=== PATIENT | male | born 1955 | race Caucasian/White ===

== ENCOUNTER 2020-05-13 18:06 | Emergency (ER) | payer MEDICARE ==
[~2020-05-13] VITALS: Ht 165.1 cm; Wt 66.2 kg
--- NOTE | 2020-05-13 18:08 | NUR ---
PT BIBRA FROM HOME C/O WORSENING R SIDED CHEST PAIN FOR THE PAST WEEK. PT DENIES COUGH AND CONGESTION OR SHORTNESS OF BREATH. PT GOWNED AND PLACED ON MONITOR. VSS. AWAITNG MD ARZOLA.
--- NOTE | 2020-05-13 18:16 | NUR ---
DR SUE AT BEDSIDE FOR EVAL.
--- NOTE | 2020-05-13 18:25 | NUR ---
IV LINE STARTED BLOOD DRAWN AND SENT TO LAB.
[2020-05-13] MEDS ORDERED: KETOROLAC TROMETHAMINE INJ 30 MG/ML VIAL ONE (18:26)
[2020-05-13] MEDS ORDERED: KETOROLAC TROMETHAMINE INJ 30 MG/ML VIAL IV ONE (18:30)
--- NOTE | 2020-05-13 18:32 | NUR ---
RADIOLOGY AT BEDSIDE FOR CHEST XRAY.
[2020-05-13 18:35] LABS: BASOPHILS % (AUTO) 0.4 % (0.0-2.0); EOSINOPHILS % (AUTO) 1.6 % (0.0-6.0); HEMATOCRIT 44 % (39-51); HEMOGLOBIN 14.6 g/dL (13.5-17.5); LYMPHOCYTES # (AUTO) 1.9 /CMM (0.8-4.8); LYMPHOCYTES % (AUTO) 26.5 % (20.0-44.0); MEAN CORPUSCULAR HGB CONC 34 g/dl (31.0-36.0); MEAN CORPUSCULAR VOLUME 89 fL (80-96); MONOCYTES # (AUTO) 0.5 /CMM (0.1-1.30); MONOCYTES % (AUTO) 7.5 % (2.0-12.0); NEUTROPHILS # (AUTO) 4.7 /CMM (1.8-8.9); PLATELET COUNT (AUTO) 198 /CMM (150-450); WHITE BLOOD COUNT (AUTO) 7.3 K/uL (4.3-11.0)
[2020-05-13 18:43] LABS: CALCIUM, SERUM 8.8 mg/dL (8.5-10.1); CARBON DIOXIDE 29 mmol/L (21-32); CHLORIDE 104 mmol/L (98-107); CREATININE 0.6 mg/dL (0.6-1.3); GLUCOSE 95 mg/dL (74-106); POTASSIUM 3.8 mmol/L (3.5-5.1); SODIUM SERUM 139 mmol/L (136-145); UREA NITROGEN, BLOOD 21 mg/dL (7-18)
[2020-05-13 19:18] VITALS: BP 154/85
--- NOTE | 2020-05-13 19:18 | NUR ---
Patient discharged to home in stable condition. Written and verbal after care instructions given. Patient verbalizes understanding of instruction.
== END 2020-05-13 19:20 | disposition home or self-care (01) ==
LOC: ER 18:16
DX: R07.89 Other chest pain (principal); I10 Essential (primary) hypertension
CPT/HCPCS: 36415; 71045; 80048; 84484; 85025; 93005; 96374; 99285; J1885